=== PATIENT | male | born 1990 | race Caucasian/White ===

== ENCOUNTER 2018-12-06 02:22 | Emergency (ER) | payer OTHER ==
[~2018-12-06] VITALS: Ht 182.9 cm; Wt 79.5 kg
[2018-12-06 02:29] VITALS: BP 139/85; TEMP 98.3
[2018-12-06 04:10] VITALS: PULSE 72
== END 2018-12-06 04:10 | disposition home or self-care (01) ==
LOC: COL.ER 02:22
DX: T15.92XA Foreign body on external eye, part unspecified, left eye, initial encounter (principal); W45.8XXA Other foreign body or object entering through skin, initial encounter; W22.09XA Striking against other stationary object, initial encounter